=== PATIENT | female | born 1970 | race Two or more races ===

== ENCOUNTER 2024-06-18 08:32 | Outpatient (AMB) | payer OTHER, SELFPAY ==
[2024-06-18 08:38] VITALS: BP 140/82; PULSE 68; O2SAT 98; BMI 34.0
--- NOTE | 2024-06-18 08:38 | MHC.OFFVIS ---
Vital Signs 06/18/24 08:38 Height 5 ft 4 in Weight 198 lb BMI 34.0 BP 140/82 H Blood Pressure Location Lt brachial Position Sitting Pulse 68 Pulse Source Pulse Oximeter Pulse Oximetry (%) 98 Oxygen Delivery Method Room Air Intake Visit Reasons: RA Intake Note: Patient presents for follow up on RA today, she is requesting refill. She needs refills on all meds prescribed by Dr. Tang. Allergies morphine Allergy (Mild, Verified 06/18/24 08:45) fever, rash HPI HPI RA: Details: She has good days and bad days. Sometimes she wakes up with no pain. There is other days where her pain level is 5/10. Morning stiffness is 30 minutes. Swelling has subsided. She is no longer on prednisone. She reports compliance with her medication regimen. She had an eye exam for hydroxychloroquine surveillance 6 months ago. She also has a another eye exam coming up. [facility] Surgical History (Updated 06/18/24 @ 08:46 by Norma Schneider CMA) H/O bilateral breast reduction surgery H/O: hysterectomy Family History (Updated 06/18/24 @ 08:47 by Norma Schneider CMA) Father Arthritis Mother No problems noted. Review of Systems Const All systems reviewed & are unremarkable except as noted in HPI and below Physical Exam Vital Signs: Last Vital Signs Pulse 68 06/18/24 08:38 BP 140/82 H 06/18/24 08:38 Pulse Ox 98 06/18/24 08:38 Oxygen Delivery Method Room Air 06/18/24 08:38 BMI result Body Mass Index 34.0 Const Other: General: Comfortable CVS: RRR Respiratory: clear to auscultation bilaterally. Good respiratory effort Skin: No lesions seen MSK: Tender to palpate all MCPs and PIP Tender wrists. Tender bilateral ankles with left ankle synovitis present. Tender MTPs. Bilateral abduction of shoulders 160 degrees actively with preserved passive range of motion. Good internal external rotation. Good range of motion of lower extremities. Assessment & Plan Assessment & Plan (1) Rheumatoid arthritis: Comment: Seronegative. Moderate disease activity on triple therapy for the last 6 months. She has resolution of synovitis on current regimen. She reports compliance. We discussed importance of having a regular exercise routine. We discussed considering changing methotrexate PO to subcutaneous injection due to greater bioavailability. She has a fear of needles. I will reassess next visit. Code(s): M06.9 - Rheumatoid arthritis, unspecified Category: Medical Qualifiers: Rheumatoid arthritis location: multiple sites Rheumatoid factor presence: without rheumatoid factor Qualified Code(s): M06.09 - Rheumatoid arthritis without rheumatoid factor, multiple sites Plan: Continue hydroxychloroquine 400 mg daily. Requesting eye exam report from 6 months ago for hydroxychloroquine surveillance Continue leflunomide 20 mg daily Continue methotrexate 20 mg once weekly Continue folic acid 1 mg daily Labs for disease and drug monitoring on high-risk medication ordered After lab results are back, I will send 90 day prescriptions for her DMARDs. Requesting L-spine x-ray [facility] She will exercise 30 minutes daily Return to clinic in 3 months (2) Other care home (current) drug therapy: Code(s): Z79.899 - Other care home (current) drug therapy Category: Medical Plan: See above Orders: Orders Alanine Aminotransferase Today M06.9 - Rheumatoid arthritis, unspecified, Z79.899 - Other care home (current) drug therapy Cyclic Citrullinated Peptide Today M06.9 - Rheumatoid arthritis, unspecified, Z79.899 - Other care home (current) drug therapy Hepatitis B,C Profile Today M06.9 - Rheumatoid arthritis, unspecified, Z79.899 - Other care home (current) drug therapy C Reactive Protein Today M06.9 - Rheumatoid arthritis, unspecified, Z79.899 - Other care home (current) drug therapy T Spot TB Today M06.9 - Rheumatoid arthritis, unspecified, Z79.899 - Other supervisor intermediates (current) drug therapy Creatinine Today M06.9 - Rheumatoid arthritis, unspecified, Z79.899 - Other care home (current) drug therapy Rheumatoid Factor Today M06.9 - Rheumatoid arthritis, unspecified, Z79.899 - Other supervisor intermediates (current) drug therapy Complete Blood Count Auto Diff Today M06.9 - Rheumatoid arthritis, unspecified, Z79.899 - Other care home (current) drug therapy Aspartate Amino Transferase Today M06.9 - Rheumatoid arthritis, unspecified, Z79.899 - Other care home (current) drug therapy Erythrocyte Sedimentation Rate Today M06.9 - Rheumatoid arthritis, unspecified, Z79.899 - Other supervisor intermediates (current) drug therapy Coding Level of Care Code Est Pt Level 4 (17912) Complex EM visit Add On G2211 Diagnoses Rheumatoid arthritis of multiple sites with negative rheumatoid factor M06.09 Rheumatoid arthritis location: multiple sites Rheumatoid factor presence: without rheumatoid factor Other supervisor intermediates (current) drug therapy Z79.899
== END 2024-06-18 09:14 | disposition home or self-care (01) ==
PROVIDERS: Visit Provider Internal Medicine Rheumatology
DX: M06.09 Rheumatoid arthritis without rheumatoid factor, multiple sites (principal); Z79.899 Other long term (current) drug therapy
CPT/HCPCS: 99214; G2211

== ENCOUNTER → 2024-06-18 08:32 | Outpatient (BNVA) | payer OTHER, SELFPAY | PROVIDERS: Visit Provider Internal Medicine Rheumatology | DX: M06.09 Rheumatoid arthritis without rheumatoid factor, multiple sites (principal); Z79.899 Other long term (current) drug therapy | CPT/HCPCS: 99212 ==

== ENCOUNTER 2024-08-21 14:44 | Outpatient (REF) | payer OTHER, SELFPAY ==
[2024-08-21 15:07] LABS: MANUAL DIFF FLAG NO
[2024-08-21 15:17] LABS: Basophils Percent Auto 0.3 % (0-2); Eosinophils Absolute Auto 0.1 X10*3/uL (0.0-0.4); Hemoglobin 15.5 g/dl (12.0-16.0); Imm Gran Abs Auto 0.02 X10*3/uL (0.00-0.03); Imm Gran Pct Auto 0.3 % (0.0-0.4); Lymphocytes Absolute Auto 2.6 X10*3/uL (1.2-4.9); Lymphocytes Percent Auto 41.6 % (20-40); Mean Corpuscular HGB Conc 35.2 g/dl (31.0-35.0); Mean Platelet Volume 10.4 fL (9.4-12.3); Monocytes Absolute Auto 0.5 X10*3/uL (0.1-1.2); Monocytes Percent Auto 7.6 % (2-11); Neutrophils Percent Auto 49.2 % (45-73); Platelet Count 228 X10*3/uL (160-400); Red Cell Distribution Width 12.5 % (11.0-16.0); White Blood Count 6.2 X10*3/uL (4.8-10.8)
[2024-08-21 15:47] LABS: Alanine Aminotransferase 15 U/L (0-31); Aspartate Amino Transferase 17 U/L (5-31); C Reactive Protein < 0.10 mg/dL (< or = 0.50); Estimated Glomerular Filt Rate > 60; Rheumatoid Factor < 13.0 IU/mL (<15.0)
[2024-08-21 15:56] LABS: Erythrocyte Sedimentation Rate 6 MM/HR (0-20)
[2024-08-22 08:15] LABS: HBS Num1 1.81 mIU/mL (0-7.99); HBc Num1 0.13 S/CO (0.00-0.79); HBsAGNum1 0.25 S/CO (0.00-0.99); Hepatitis B Core Antibody Nonreactive (Nonreactive); Hepatitis B Surface Antigen Negative (Negative); ~HepC Num1 0.15 S/CO (0.00-0.79); ~Hepatitis B Surface Antibody NONREACTIVE (Nonreactive); ~Hepatitis C Antibody Nonreactive (Nonreactive)
[2024-08-23 13:08] LABS: Cyclic Citrullinated Peptide <16 UNITS
[2024-08-24 00:23] LABS: TS Negative Control Passed; TS Panel A 0; TS Panel B 0; TS Positive Control Passed; TSpotTB Negative (Negative)
== END 2024-08-21 14:45 | disposition home or self-care (01) ==
LOC: HO.LAB 14:44
PROVIDERS: PCP Nurse Practitioner Family; Visit Provider Internal Medicine Rheumatology
DX: M06.9 Rheumatoid arthritis, unspecified (principal); Z79.899 Other long term (current) drug therapy
CPT/HCPCS: 36415; 82565; 84450; 84460; 85025; 85652; 86140; 86200; 86431; 86481; 86704; 86706; 86803; 87340

== ENCOUNTER 2024-08-22 13:43 | Outpatient (AMB) | payer OTHER, SELFPAY ==
--- NOTE | 2024-08-22 13:44 | MHC.OFFVIS ---
Vital Signs 08/22/24 13:45 Height 5 ft 4 in Weight 189 lb 9.561 oz BMI 32.5 BP 130/80 Blood Pressure Location Lt brachial Position Sitting Pulse 87 Pulse Source Pulse Oximeter Pulse Oximetry (%) 99 Oxygen Delivery Method Room Air Intake Visit Reasons: LBP/Lt hip pain Intake Note: Patient presents for follow up on RA today, Allergies morphine Allergy (Mild, Verified 08/22/24 13:49) fever, rash HPI HPI LBP/Lt hip pain: Details: Lower back pain and left hip pain started a few weeks ago. No trauma associated with onset. Hands are swollen. She takes ibuprofen 400mg QID MS 30 minutes. PFSH Surgical History H/O bilateral breast reduction surgery H/O: hysterectomy Family History Father Arthritis Mother No problems noted. Physical Exam Vital Signs: Last Vital Signs Pulse 87 08/22/24 13:45 BP 130/80 08/22/24 13:45 Pulse Ox 99 08/22/24 13:45 Oxygen Delivery Method Room Air 08/22/24 13:45 BMI result Body Mass Index 32.5 Const Other: General: Comfortable CVS: RRR Respiratory: clear to auscultation bilaterally. Good respiratory effort Skin: No lesions seen MSK: Tender to palpate all MCPs, PIPs, IP. Synovitis of right 5th PIP and left 2-3 MCP. Tender bilateral MTPs, ankles, knees. Synovitis of bilateral knees. Normal range of motion of upper extremity. Normal range of motion of lower extremities. Tender to palpate lumbar spinous process, paraspinal muscles and laterally involving bilateral gluteal regions right worse than left. She is experiencing paraesthesia in left toes during exam. Assessment & Plan Assessment & Plan (1) Rheumatoid arthritis: Comment: Seronegative. Uncontrolled with triple therapy. We discussed next steps in treatment with DMARD therapy. She is afraid of needles. We discussed side effects, benefits and drug monitoring on Juan F. Code(s): M06.9 - Rheumatoid arthritis, unspecified Category: Medical Qualifiers: Rheumatoid arthritis location: multiple sites Rheumatoid factor presence: without rheumatoid factor Qualified Code(s): M06.09 - Rheumatoid arthritis without rheumatoid factor, multiple sites Plan: I will obtain lipid panel fasting After TB test result is back, I will start PA process for Xeljanz 11 mg XL daily. After Xeljanz is approved, she will need labs for drug monitoring 4 weeks after: CBC, creatinine, AST, ALT. Xeljanz we will replace hydroxychloroquine and leflunomide. She will remain on methotrexate. Prednisone course prescribed Continue hydroxychloroquine 400 mg daily Continue leflunomide 20 mg daily Continue methotrexate 20 mg once weekly Continue folic acid 1 mg daily Return to clinic in 3 months (2) Low back pain with left-sided sciatica: Comment: I will evaluate further for lumbar spine pathology contributing to her symptoms with x-ray. She has myofascial strain contributing to her lower back pain. We discussed conservative management. Code(s): M54.42 - Lumbago with sciatica, left side Category: Medical Qualifiers: Chronicity: acute Back pain laterality: left Qualified Code(s): M54.42 - Lumbago with sciatica, left side Plan: X-ray lumbar spine ordered Start cyclobenzaprine 5 mg q.h.s. Start PT Return to clinic in 3 months (3) Other correction (current) drug therapy: Code(s): Z79.899 - Other terminal system operator (current) drug therapy Category: Medical Plan: See above Orders: Orders Lipid Panel Today M06.09 - Rheumatoid arthritis without rheumatoid factor, multiple sites XR lumbar spine 2-3V Today M54.42 - Lumbago with sciatica, left side Medications: New folic acid 1 mg PO DAILY 90 tabs 3RF cyclobenzaprine 5 mg PO BEDTIME PRN 30 tabs 0RF muscle spasm prednisone Take 4 tablets daily 5 days, 3 tablets daily 5 days, 2 tablets daily 5 days, 1 tablets 5 days with food. Avoid ibuprofen with prednisone. 5 mg PO DIRECTED 50 tabs 0RF Coding Level of Care Code Est Pt Level 4 (41030) Complex EM visit Add On G2211 Diagnoses Rheumatoid arthritis of multiple sites with negative rheumatoid factor M06.09 Rheumatoid arthritis location: multiple sites Rheumatoid factor presence: without rheumatoid factor Acute left-sided low back pain with left-sided sciatica M54.42 Chronicity: acute Back pain laterality: left Other correction (current) drug therapy Z79.899
[2024-08-22 13:45] VITALS: BP 130/80; PULSE 87; O2SAT 99; BMI 32.5
== END 2024-08-22 14:17 | disposition home or self-care (01) ==
LOC: HO.RHES 13:43
PROVIDERS: Visit Provider Internal Medicine Rheumatology
DX: M06.09 Rheumatoid arthritis without rheumatoid factor, multiple sites (principal); M54.42 Lumbago with sciatica, left side; Z79.899 Other long term (current) drug therapy
CPT/HCPCS: 99214; G2211

== ENCOUNTER → 2024-08-22 13:43 | Outpatient (BNVA) | payer OTHER, SELFPAY | PROVIDERS: Visit Provider Internal Medicine Rheumatology | DX: M06.09 Rheumatoid arthritis without rheumatoid factor, multiple sites (principal); M54.42 Lumbago with sciatica, left side; Z79.899 Other long term (current) drug therapy | CPT/HCPCS: 99212 ==

== ENCOUNTER 2024-08-27 09:40 | Outpatient (REF) | payer OTHER, SELFPAY ==
[2024-08-27 18:34] LABS: Cholesterol 189 mg/dL (<200); HDL Cholesterol 62 mg/dL (>40); LDL Cholesterol Calculated 115 mg/dL (<100); Triglycerides 63 mg/dL (<150)
== END 2024-08-27 09:41 | disposition home or self-care (01) ==
LOC: HO.HKASLDS 09:40
PROVIDERS: Visit Provider Internal Medicine Rheumatology
DX: M06.09 Rheumatoid arthritis without rheumatoid factor, multiple sites (principal); Z79.60 Long term (current) use of unspecified immunomodulators and immunosuppressants; Z79.899 Other long term (current) drug therapy
CPT/HCPCS: 36415; 80061

== ENCOUNTER 2024-12-10 09:04 | Outpatient (AMB) | payer MEDICARE, MEDICAID, SELFPAY ==
--- NOTE | 2024-12-10 09:12 | MHC.OFFVIS ---
Vital Signs 12/10/24 09:13 Height 5 ft 4 in Weight 196 lb 3.382 oz BMI 33.7 BP 140/80 H Blood Pressure Location Lt brachial Position Sitting Pulse 65 Pulse Source Pulse Oximeter Pulse Oximetry (%) 98 Oxygen Delivery Method Room Air Intake Visit Reasons: 3 Months/insurance inactive pls verify Intake Note: Patient presents for follow up on RA today. Allergies morphine Allergy (Mild, Verified 12/10/24 09:16) fever, rash HPI HPI 3 Months/insurance inactive pls verify: Details: MS 30-45 minutes She went to [facility] was walking alot. She had swelling in her feet. She was able to do more than she thought. Hand pain and swelling improved. No recent infections. She continues to have lower back pain with left radiculopathy. She has 6-7/10 joint pain. [facility] Surgical History H/O bilateral breast reduction surgery H/O: hysterectomy Family History Father Arthritis Mother No problems noted. Physical Exam Vital Signs: Last Vital Signs Pulse 65 12/10/24 09:13 BP 140/80 H 12/10/24 09:13 Pulse Ox 98 12/10/24 09:13 Oxygen Delivery Method Room Air 12/10/24 09:13 BMI result Body Mass Index 33.7 Const Other: General: Comfortable CVS: RRR Respiratory: clear to auscultation bilaterally. Good respiratory effort Skin: No lesions seen MSK: Tender to palpate all MCPs, L PIPs, R IP, bilateral elbows and shoulders. Synovitis of left 3 MCP. Tender bilateral MTPs, ankles, knees. Normal range of motion of upper extremity. Normal range of motion of lower extremities. Tender to palpate lumbar spinous process. Straight leg raising tests left positive. She is experiencing paraesthesia in left toes during exam. Assessment & Plan Assessment & Plan (1) Rheumatoid arthritis: Comment: Seronegative. Uncontrolled with triple therapy. She had benefit on prednisone. She is hesitant to change to Xeljanz at this time due to benefit with prednisone course. We discussed next steps. She prefers to have another course of prednisone then reassessment next visit. We discussed risk of PCP on triple therapy- PCP prophylaxis is indicated. High disease activity per CDAI 31. Code(s): M06.9 - Rheumatoid arthritis, unspecified Category: Medical Qualifiers: Rheumatoid arthritis location: multiple sites Rheumatoid factor presence: without rheumatoid factor Qualified Code(s): M06.09 - Rheumatoid arthritis without rheumatoid factor, multiple sites Plan: Prednisone course prescribed Continue hydroxychloroquine 400 mg daily. She had eye exam in October. Requesting report Continue leflunomide 20 mg daily Continue methotrexate 20 mg once weekly Continue folic acid 1 mg daily Return to clinic in 3 months I will reconsider Juan F next visit, which will replace leflunomide and hydroxychloroquine. She will then not need PCP prophylaxis. Patient understands. (2) Low back pain with left-sided sciatica: Comment: She has mild degenerative joint disease on x-ray from September 2024. She continues to have left radiculopathy. Code(s): M54.42 - Lumbago with sciatica, left side Category: Medical Qualifiers: Chronicity: acute Back pain laterality: left Qualified Code(s): M54.42 - Lumbago with sciatica, left side Plan: Continue cyclobenzaprine 5 mg q.h.s. PRN Start PT Return to clinic in 3 months (3) Other detention (current) drug therapy: Code(s): Z79.899 - Other assistant terminal manager (current) drug therapy Category: Medical Plan: See above Orders: Orders Complete Blood Count Man Dif Today M06.09 - Rheumatoid arthritis without rheumatoid factor, multiple sites, Z79.899 - Other assistant terminal manager (current) drug therapy Aspartate Amino Transferase Today M06.09 - Rheumatoid arthritis without rheumatoid factor, multiple sites, Z79.899 - Other assistant terminal manager (current) drug therapy PT Evaluation and Treatment Today M54.16 - Radiculopathy, lumbar region Alanine Aminotransferase Today M06.09 - Rheumatoid arthritis without rheumatoid factor, multiple sites, Z79.899 - Other detention (current) drug therapy Creatinine Today M06.09 - Rheumatoid arthritis without rheumatoid factor, multiple sites, Z79.899 - Other detention (current) drug therapy C Reactive Protein Today M06.09 - Rheumatoid arthritis without rheumatoid factor, multiple sites, Z79.899 - Other assistant terminal manager (current) drug therapy Erythrocyte Sedimentation Rate Today M06.09 - Rheumatoid arthritis without rheumatoid factor, multiple sites, Z79.899 - Other assistant terminal manager (current) drug therapy Medications: New sulfamethoxazole-trimethoprim 400-80 mg (Bactrim) PCP ppx 1 tab PO DAILY 90 tabs 3RF Refilled prednisone Take 4 tablets daily 5 days, 3 tablets daily 5 days, 2 tablets daily 5 days, 1 tablets 5 days with food. Avoid ibuprofen with prednisone. 5 mg PO DIRECTED 50 tabs 0RF leflunomide 20 mg PO DAILY 90 tabs 0RF methotrexate sodium 20 mg (8 x 2.5 mg) PO QWEEK 96 tabs 0RF 12 weeks hydroxychloroquine 400 mg (2 x 200 mg) PO DAILY 180 tabs 1RF 90 days Coding Level of Care Code Est Pt Level 4 (02320) Complex EM visit Add On G2211 Diagnoses Rheumatoid arthritis of multiple sites with negative rheumatoid factor M06.09 Rheumatoid arthritis location: multiple sites Rheumatoid factor presence: without rheumatoid factor Acute left-sided low back pain with left-sided sciatica M54.42 Chronicity: acute Back pain laterality: left Other detention (current) drug therapy Z79.899
[2024-12-10 09:13] VITALS: BP 140/80; PULSE 65; O2SAT 98; BMI 33.7
== END 2024-12-10 09:49 | disposition home or self-care (01) ==
PROVIDERS: Visit Provider Internal Medicine Rheumatology
DX: M06.09 Rheumatoid arthritis without rheumatoid factor, multiple sites (principal); M54.42 Lumbago with sciatica, left side; Z79.899 Other long term (current) drug therapy
CPT/HCPCS: 99214; G2211

== ENCOUNTER 2024-12-10 09:04 | Outpatient (REF) | payer MEDICARE, MEDICAID, SELFPAY ==
[2024-12-10 15:19] LABS: Baso%MD 0.5 %; Eos%MD 1.3 %; Hematocrit 43.2 % (37.0-47.0); Hemoglobin 14.5 g/dl (12.0-16.0); IG%MD 0.0 %; Lymph%MD 35.0 %; Mean Corpuscular HGB Conc 33.6 g/dl (31.0-35.0); Mean Corpuscular Hemoglobin 30.7 pg (27.0-33.0); Mean Corpuscular Volume 91.5 fL (80.0-98.0); Mono%MD 8.0 %; NRBC Abs Auto 0.000 X10*3/uL (0.0-0.012); NRBC Pct Auto 0.0 /100WBC (0.0-0.2); Neut%MD 55.2 %; Platelet Count 220 X10*3/uL (160-400); Red Blood Count 4.72 X10*6/uL (4.20-5.50); White Blood Count 3.9 X10*3/uL (4.8-10.8)
[2024-12-10 15:31] LABS: Alanine Aminotransferase 27 U/L (0-31); Aspartate Amino Transferase 29 U/L (5-31); Estimated Glomerular Filt Rate > 60
[2024-12-10 16:21] LABS: Band Neutrophils Percent 0 % (3-5); Lymphocytes Absolute Manual 1.6 X10*3/uL (1.2-4.9); Lymphocytes Percent Manual 40 % (20-40); Monocytes Absolute Manual 0.3 X10*3/uL (0.1-1.2); Monocytes Percent Manual 7 % (2-11); Neutrophils Absolute Manual 2.1 X10*3/uL (2.0-8.3); Neutrophils Percent Manual 53 % (45-73)
[2024-12-10 16:24] LABS: RBC Morphology NORMAL
== END 2024-12-10 09:05 | disposition home or self-care (01) ==
LOC: HO.HKASLDS 09:04
PROVIDERS: Visit Provider Internal Medicine Rheumatology
DX: M06.09 Rheumatoid arthritis without rheumatoid factor, multiple sites (principal); M54.42 Lumbago with sciatica, left side; Z79.899 Other long term (current) drug therapy; Z79.52 Long term (current) use of systemic steroids
CPT/HCPCS: 36415; 82565; 84450; 84460; 85007; 85027; 85652; 86140; 99212

== ENCOUNTER 2025-03-27 08:48 | Outpatient (AMB) | payer MEDICARE, MEDICAID, SELFPAY ==
--- NOTE | 2025-03-27 08:53 | MHC.OFFVIS ---
Vital Signs 03/27/25 08:54 Height 5 ft 4 in Weight 193 lb 12.581 oz BMI 33.3 BP 120/70 Blood Pressure Location Lt brachial Position Sitting Pulse 63 Pulse Source Pulse Oximeter Pulse Oximetry (%) 100 Oxygen Delivery Method Room Air Intake Visit Reasons: 3 Months Intake Note: Patient presents for follow up on RA today. Accompanied by: Self / Same As Patient Allergies morphine Allergy (Mild, Verified 03/27/25 08:53) fever, rash HPI HPI 3 Months: Details: Her pain level is 1-2/10. She feels well. Right hand is slightly swollen due to weather change. No recent infections. She got the flu shot 2 weeks ago. Morning stiffness is 30 minutes PFS Surgical History H/O bilateral breast reduction surgery H/O: hysterectomy Family History Father Arthritis Mother No problems noted. Physical Exam Vital Signs: Last Vital Signs Pulse 63 03/27/25 08:54 BP 120/70 03/27/25 08:54 Pulse Ox 100 03/27/25 08:54 Oxygen Delivery Method Room Air 03/27/25 08:54 BMI result Body Mass Index 33.3 Const Other: General: Comfortable CVS: RRR Respiratory: clear to auscultation bilaterally. Good respiratory effort Skin: No lesions seen MSK: Tender to palpate all MCPs, PIPs, bilateral elbows and shoulders, left knee, right MTPs. Slight synovitis right 3rd MCP. Normal range of motion of upper extremity. Normal range of motion of lower extremities. Assessment & Plan Assessment & Plan (1) Rheumatoid arthritis: Comment: Seronegative. Uncontrolled with triple therapy. Improved with prednisone course. She is requiring multiple prednisone courses, which has resolved synovitis but she continues to have polyarthralgias. She continues to have high disease activity per CDAI 31. Goal of treatment is to obtain remission. We discussed next steps in changing methotrexate to subcutaneous injection for greater bio availability. She is afraid of needles. She is not willing to draw up needle. She is willing to try Rasuvo pen. Code(s): M06.9 - Rheumatoid arthritis, unspecified Category: Medical Qualifiers: Rheumatoid arthritis location: multiple sites Rheumatoid factor presence: without rheumatoid factor Qualified Code(s): M06.09 - Rheumatoid arthritis without rheumatoid factor, multiple sites Plan: Continue hydroxychloroquine 400 mg daily. Mar 0809/2024 VF scheduled in Jul 2025 Continue leflunomide 20 mg daily Continue methotrexate 20 mg once weekly. We will switch po methotrexate to Rasuvo Continue folic acid 1 mg daily Return to clinic in 3 months I will reconsider Juan F next visit after changing methotrexate PO to subcutaneous injection, which will replace leflunomide and hydroxychloroquine. She will then not need PCP prophylaxis. (2) Other care home (current) drug therapy: Code(s): Z79.899 - Other machine setter automatic (current) drug therapy Category: Medical Plan: See above Orders: Orders Erythrocyte Sedimentation Rate Today Z79.899 - Other machine setter automatic (current) drug therapy Aspartate Amino Transferase Today Z79.899 - Other care home (current) drug therapy C Reactive Protein Today Z79.899 - Other care home (current) drug therapy Complete Blood Count Auto Diff Today Z79.899 - Other care home (current) drug therapy Creatinine Today Z79.899 - Other machine setter automatic (current) drug therapy Alanine Aminotransferase Today Z79.899 - Other care home (current) drug therapy Medications: New methotrexate (PF) (Rasuvo (PF)) First dose administration in the office. 20 mg (0.4 mL) subcut QWEEK 1.6 mL 2RF 4 weeks Refilled methotrexate sodium 20 mg (8 x 2.5 mg) PO QWEEK 96 tabs 0RF 12 weeks leflunomide 20 mg PO DAILY 90 tabs 0RF hydroxychloroquine 400 mg (2 x 200 mg) PO DAILY 180 tabs 1RF 90 days Coding Level of Care Code Est Pt Level 4 (90268) Complex EM visit Add On G2211 Diagnoses Rheumatoid arthritis of multiple sites with negative rheumatoid factor M06.09 Rheumatoid arthritis location: multiple sites Rheumatoid factor presence: without rheumatoid factor Other care home (current) drug therapy Z79.899
[2025-03-27 08:54] VITALS: BP 120/70; PULSE 63; O2SAT 100; BMI 33.3
== END 2025-03-27 09:51 | disposition home or self-care (01) ==
LOC: HO.RHES 08:49
PROVIDERS: Visit Provider Internal Medicine Rheumatology
DX: M06.09 Rheumatoid arthritis without rheumatoid factor, multiple sites (principal); Z79.899 Other long term (current) drug therapy
CPT/HCPCS: 99214; G2211

== ENCOUNTER 2025-03-27 08:48 | Outpatient (REF) | payer MEDICARE, SELFPAY ==
[2025-03-27 13:13] LABS: MANUAL DIFF FLAG NO
[2025-03-27 13:23] LABS: Hematocrit 43.8 % (37.0-47.0); Hemoglobin 14.8 g/dl (12.0-16.0); Imm Gran Abs Auto 0.01 X10*3/uL (0.00-0.03); Imm Gran Pct Auto 0.2 % (0.0-0.4); Lymphocytes Absolute Auto 1.7 X10*3/uL (1.2-4.9); Mean Corpuscular HGB Conc 33.8 g/dl (31.0-35.0); Mean Corpuscular Hemoglobin 30.5 pg (27.0-33.0); Mean Corpuscular Volume 90.1 fL (80.0-98.0); NRBC Abs Auto 0.000 X10*3/uL (0.0-0.012); NRBC Pct Auto 0.0 /100WBC (0.0-0.2); Platelet Count 230 X10*3/uL (160-400); Red Blood Count 4.86 X10*6/uL (4.20-5.50); White Blood Count 4.5 X10*3/uL (4.8-10.8)
[2025-03-27 13:35] LABS: Alanine Aminotransferase 17 U/L (0-31); Aspartate Amino Transferase 22 U/L (5-31); Estimated Glomerular Filt Rate > 60
== END 2025-03-27 08:49 | disposition home or self-care (01) ==
LOC: HO.HKASLDS 08:48
PROVIDERS: PCP Physician Assistant Medical; Visit Provider Internal Medicine Rheumatology
DX: M06.09 Rheumatoid arthritis without rheumatoid factor, multiple sites (principal); Z79.899 Other long term (current) drug therapy; Z79.631 Long term (current) use of antimetabolite agent; Z51.81 Encounter for therapeutic drug level monitoring
CPT/HCPCS: 36415; 82565; 84450; 84460; 85025; 85652; 86140; 99212